=== PATIENT | male | born 1985 | race Hispanic/Latino ===

== ENCOUNTER 2016-11-30 01:22 | Emergency (ER) | payer SELFPAY ==
[2016-11-30 01:53] VITALS: BP 150/108; PULSE 134; RESP 20; TEMP 99.5; O2SAT 96
--- NOTE | 2016-11-30 02:45 | ED PDOC ---
HPI: Psych/Substance Abuse Time Seen by Provider: 11/30/16 01:45 Chief Complaint (Nursing): Psychiatric Evaluation Chief Complaint (Provider): Psychiatric Evaluation History Per: Patient History/Exam Limitations: no limitations Additional Complaint(s): Garrett Lundberg, a 31 year old male, is brought into the ED by ambulance and police escort for a psychiatric evaluation. Reportedly, the patient was drinking alcohol and his mother called the police and told them he was suicidal. Patient denies any suicidal thoughts or attempts not is he suicidal. The patient admits to drinking today but states he did not drink alot. Denies any other medical complaints Past Medical History Reviewed: Historical Data, Nursing Documentation, Vital Signs Vital Signs: Last Vital Signs Temp 99.5 F 11/30/16 01:44 Pulse 134 H 11/30/16 01:44 Resp 20 11/30/16 01:44 BP 150/108 H 11/30/16 01:44 Pulse Ox 96 11/30/16 01:44 - Medical History PMH: No Chronic Diseases - Family History Family History: States: Unknown Family Hx - Social History Alcohol: > 2 Drinks/Day - Allergies Allergies/Adverse Reactions: Allergies Allergy/AdvReac Type Severity Reaction Status Date / Time No Known Allergies Allergy Verified 11/30/16 01:44 Review of Systems ROS Statement: Except As Marked, All Systems Reviewed And Found Negative Psych: Positive for: Other (Psychiatric evaluation). Negative for: Suicidal ideation (Denies suicidal and homicidal ideations.) Physical Exam - Physical Exam Appears: Positive for: Non-toxic, No Acute Distress Head Exam: Positive for: ATRAUMATIC, NORMOCEPHALIC Skin: Positive for: Normal Color, Warm, Dry Eye Exam: Positive for: Normal appearance, EOMI, PERRL ENT: Positive for: Normal ENT Inspection Neck: Positive for: Normal, Painless ROM, Supple Cardiovascular/Chest: Positive for: Chest Non Tender, Tachycardia Respiratory: Positive for: Normal Breath Sounds. Negative for: Wheezing, Respiratory Distress Gastrointestinal/Abdominal: Positive for: Normal Exam, Bowel Sounds, Soft. Negative for: Tenderness, Guarding, Rebound Back: Positive for: Normal Inspection Extremity: Positive for: Normal ROM. Negative for: Tenderness, Pedal Edema, Deformity, Swelling Neurologic/Psych: Positive for: Alert, Oriented, Gait - ECG O2 Sat by Pulse Oximetry: 96 (RA) Pulse Ox Interpretation: Normal Medical Decision Making Medical Decision Makin Initial Impression: 31 year old male presenting with Alcohol intoxication vs Depression s Psychosis Initial Plan: * Alcohol Serum * Drug Screen * Crisis Evaluation * Reevaluation Scribe Attestation Documented by Shandra Tristan acting as a scribe for Iza Villarreal MD. Provider Attestation All medical record entries made by the Scribe were at my direction and personally dictated by me. I have reviewed the chart and agree that the record accurately reflects my personal performance of the history, physical exam, medical decision making, and the department course for this patient. I have also personally directed, reviewed, and agree with the discharge instructions and disposition. Disposition - Clinical Impression Clinical Impression: Alcohol abuse, Adjustment disorder - Patient ED Disposition Is Patient to be Admitted: No Doctor Will See Patient In The: Office Counseled Patient/Family Regarding: Studies Performed, Diagnosis, Need For Followup - Disposition Referrals: [facility] [Outside] Disposition: Routine/Home Disposition Time: 04:36 Condition: GOOD Instructions: Alcohol Intoxication (ED), Mood Disorders (ED)
== END 2016-11-30 04:43 | disposition home or self-care (01) ==
LOC: H.ER 01:22
DX: F10.10 Alcohol abuse, uncomplicated (principal); F43.20 Adjustment disorder, unspecified
CPT/HCPCS: 99283; G0480

== ENCOUNTER 2017-01-27 15:03 | Emergency (ER) | payer OTHER ==
[2017-01-27 15:10] VITALS: BP 166/95; RESP 16; TEMP 98.2; O2SAT 100
--- NOTE | 2017-01-27 15:47 | ED PDOC ---
HPI: Psych/Substance Abuse Time Seen by Provider: 01/27/17 15:41 Chief Complaint (Nursing): Anxiety Chief Complaint (Provider): Anxiety History Per: Patient History/Exam Limitations: no limitations Onset/Duration Of Symptoms: Days Current Symptoms Are (Timing): Still Present Suicide/Self Injury Attempted (Context): None Modifying Factor(s): None Additional History Per: Patient Additional Complaint(s): The patient is a 31yo male, presents to the ED for evaluation due to feeling anxious and upset. Patient states he recently started a new job and has had a hard time coping with the changes; he also reports his long time girlfriend broke up with him 1 month ago and since then he has been upset. He reports he has been visiting a psychiatrist but today was a breaking point so he came to the ED. He denies any suicidal ideation, homicidal ideation, and offers no medical complaints. Past Medical History Reviewed: Historical Data, Nursing Documentation, Vital Signs Vital Signs: Last Vital Signs Temp 98.2 F 01/27/17 15:07 Pulse 122 H 01/27/17 15:07 Resp 16 01/27/17 15:07 BP 166/95 H 01/27/17 15:07 Pulse Ox 100 01/27/17 15:07 - Medical History PMH: Anxiety Denies: Diabetes, Hepatitis, HIV, HTN, Seizures, Sexually Transmitted Disease - Surgical History Surgical History: No Surg Hx - Family History Family History: States: Unknown Family Hx, Other Other Family History: both sides of family with depression - Allergies Allergies/Adverse Reactions: Allergies Allergy/AdvReac Type Severity Reaction Status Date / Time No Known Allergies Allergy Verified 01/27/17 15:07 Review of Systems Psych: Positive for: Anxiety, Depression. Negative for: Suicidal ideation Physical Exam - Physical Exam Appears: Positive for: Non-toxic Head Exam: Positive for: ATRAUMATIC, NORMAL INSPECTION, NORMOCEPHALIC Skin: Positive for: Warm Eye Exam: Positive for: Normal appearance Neck: Positive for: Supple Cardiovascular/Chest: Positive for: Regular Rate, Rhythm Respiratory: Positive for: Normal Breath Sounds. Negative for: Respiratory Distress Neurologic/Psych: Positive for: Alert, Oriented. Negative for: Motor/Sensory Deficits - ECG ECG Rhythm: Positive for: Normal QRS, Sinus Rhythm Rate: 84 O2 Sat by Pulse Oximetry: 100 (RA) Pulse Ox Interpretation: Normal Medical Decision Making Medical Decision Making: Time: 1547 Impression: Anxiety and depression due to emotional stressors Plan: -- Xanax 0.5 mg PO -- Crisis evaluation Reassess crisis eval pt to be d.c with depressive d/o and will f.u with psychiatrist. Scribe Attestation: Documented by Bella Huntley acting as a scribe for DOUG Coreas Provider Attestation: All medical record entries made by the Scribe were at my direction and personally dictated by me. I have reviewed the chart and agree that the record accurately reflects my personal performance of the history, physical exam, medical decision making, and the department course for this patient. I have also personally directed, reviewed, and agree with the discharge instructions and disposition. Disposition - Clinical Impression Clinical Impression: Depressive disorder - Patient ED Disposition Is Patient to be Admitted: No Counseled Patient/Family Regarding: Studies Performed, Diagnosis, Need For Followup - Disposition Disposition: Routine/Home Disposition Time: 19:02 Condition: STABLE Instructions: Depression (DC) Forms: [employer] (Bulgarian), [facility] ED School/Work Excuse
[2017-01-27 16:10] VITALS: PULSE 84
== END 2017-01-27 19:14 | disposition home or self-care (01) ==
LOC: H.ER 15:03
DX: F41.9 Anxiety disorder, unspecified (principal)